=== PATIENT | male | born 1990 | race African-American/Black ===

== ENCOUNTER 2020-02-06 09:18 | Emergency (ER) | payer OTHER ==
[2020-02-06 09:35] VITALS: BP 113/54; PULSE 84; TEMP 98; BMI 19.9
--- NOTE | 2020-02-06 10:24 | PDOC ---
History of Present Illness - General Chief Complaint: Injury Stated Complaint: HAND INJURY Time Seen by Provider: 02/06/20 09:35 History Source: Patient Exam Limitations: No Limitations Past History - Travel Traveled outside of the country in the last 30 days: No Close contact w/someone who was outside of country & ill: No - Past Medical History Allergies/Adverse Reactions: Allergies Allergy/AdvReac Type Severity Reaction Status Date / Time No Known Allergies Allergy Verified 02/06/20 09:35 - Psycho Social/Smoking Cessation Hx Smoking History: Never smoked Have you smoked in the past 12 months: No Information on smoking cessation initiated: No Hx Alcohol Use: No Drug/Substance Use Hx: No Review of Systems - Review of Systems Able to Perform ROS?: Yes Comments:: 02/06/20 10:19 CONSTITUTIONAL: Absent: fever, chills, diaphoresis, generalized weakness, malaise, loss of appetite MUSCULOSKELETAL: Present: Right hand pain absent: myalgia, arthralgia, joint swelling SKIN: Absent: rash, itching, pallor NEUROLOGIC: Absent: headache, focal weakness or paresthesias, dizziness, unsteady gait, seizure, mental status changes, bladder or bowel incontinence PSYCHIATRIC: Absent: anxiety, depression, suicidal or homicidal ideation, hallucinations. Is the patient limited Lao proficient: No *Physical Exam - Vital Signs Last Vital Signs Temp Pulse Resp BP Pulse Ox 98.0 F 84 18 113/54 L 100 02/06/20 09:33 02/06/20 09:33 02/06/20 09:33 02/06/20 09:33 02/06/20 09:33 - Physical Exam 02/06/20 10:19 GENERAL: The patient is awake, alert, and fully oriented, in no acute distress. HEAD: Normal with no signs of trauma. EYES: Pupils equal, round and reactive to light, extraocular movements intact, sclera anicteric, conjunctiva clear. EXTREMITIES: Tenderness to palpation of the fourth and fifth metacarpals. Mild bruising associated with the tenderness. Patient is full range of motion of the right hand. Is able to finger oppose, make an okay sign, and make a thumbs up sign. Normal range of motion, no edema. NEUROLOGICAL: Normal speech, normal gait. PSYCH: Normal mood, normal affect. SKIN: Warm, Dry, normal turgor, no rashes or lesions noted. ED Treatment Course - RADIOLOGY Radiology Studies Ordered: Category Date Time Status HAND- RIGHT [RAD] Stat Radiology 02/06/20 09:41 Taken Medical Decision Making - Medical Decision Making 02/06/20 10:22 The patient is a 29-year-old male with no past medical history who presents to the ER today with right hand pain. He states that 2 days ago a bookshelf fell on his right hand. He states he has been able to move it however he has persistent pain with repetitive motions like cutting food while at work. He is right-hand dominant. Denies lightheadedness, dizziness, numbness and tingling to the affected extremity. A/P: Right hand pain On exam patient does have tenderness the fourth and fifth metacarpals. X-ray is negative. Patient is full range of motion of his right hand, good strength in all fingers. Likely a sprain of the flexor sheath. We will discharge home with a splint, supportive measures and orthopedic follow- up. I discussed the physical exam findings, ancillary test results and final diagnoses with the patient. I answered all of the patient's questions. The patient was satisfied with the care received and felt comfortable with the discharge plan and treatment plan. The Patient agrees to follow up with the primary care physician/specialist within 24-72 hours. Return precautions were given. Discharge - Discharge Information Problems reviewed: Yes Clinical Impression/Diagnosis: Hand pain, right Condition: Stable Disposition: HOME - Admission No - Follow up/Referral Referrals: Dane Baldwin MD [Staff Physician] - - Patient Discharge Instructions Patient Printed Discharge Instructions: DI for Hand Pain Additional Instructions: You were evaluated for your hand pain today. Your x-ray was negative and did not show any broken bones. Please wear the wrist splint for comfort and to help rest the hand. You may ice the hand for 20-minute periods. Please take Motrin 600 mg every 6 hours to help reduce swelling and to help with the pain. Please follow-up with the hand specialist within the week if your symptoms do not start to improve. A referral has been provided to you. Return to the ER for worsening pain, numbness and tingling to the extremity or if you have any changes in your symptoms. - Post Discharge Activity
== END 2020-02-06 10:31 | disposition home or self-care (01) ==
LOC: JERFT 09:18
DX: S69.81XA Other specified injuries of right wrist, hand and finger(s), initial encounter (principal); M79.641 Pain in right hand; W20.8XXA Other cause of strike by thrown, projected or falling object, initial encounter; Y92.038 Other place in apartment as the place of occurrence of the external cause; Y93.89 Activity, other specified; Y99.8 Other external cause status
CPT/HCPCS: 73130-TC-RT-FY; 99283-25

== ENCOUNTER 2020-03-03 03:45 | Emergency (ER) | payer OTHER ==
[2020-03-03] MEDS ORDERED: DIPHTH,PERTUSS(ACELL),TET 0.5 ML DISP.SYRIN IM ONE ×2 (04:25→05:08)
[2020-03-03] MEDS ORDERED: IBUPROFEN 400 MG TABLET (FP) PO ONE ×2 (04:25→05:08)
[2020-03-03 05:14] VITALS: BP 122/74; PULSE 81; TEMP 97.1; BMI 22.4
== END 2020-03-03 05:15 | disposition home or self-care (01) ==
LOC: JER 03:45
DX: S01.111A Laceration without foreign body of right eyelid and periocular area, initial encounter (principal); W19.XXXA Unspecified fall, initial encounter
CPT/HCPCS: 90715; 99283-25

== ENCOUNTER 2021-02-02 07:07 | Emergency (ER) | payer OTHER ==
[2021-02-02 07:25] VITALS: TEMP 97; BMI 21.7
[2021-02-02] MEDS ORDERED: ACETAMINOPHEN 325 MG TABLET (FP) PO ONE (08:45)
[2021-02-02] MEDS ORDERED: ACETAMINOPHEN 325 MG TABLET (FP) ONE (08:46)
[2021-02-02] MEDS ORDERED: LIDOCAINE 5% TOPICAL PATCH TP ONE (08:58)
[2021-02-02] MEDS ORDERED: LIDOCAINE 5% TOPICAL PATCH ONE (09:16)
[2021-02-02 09:36] LABS: EOS % 4.7 % (0-4.5); HEMATOCRIT 40.6 % (35.4-49); HEMOGLOBIN 13.5 GM/dL (11.7-16.9); LYMPH % 61.3 % (8-40); MCH 29.2 pg (25.7-33.7); MCHC 33.3 g/dl (32.0-35.9); MEAN CELL VOLUME 87.8 fl (80-96); MEAN PLT VOLUME 7.5 fl (7.5-11.1); MONO % 8.4 % (3.8-10.2); NEUT % 24.6 % (42.8-82.8); PLATELET COUNT 325 K/MM3 (134-434); RBC 4.62 M/mm3 (4.00-5.60); RDW 13.5 % (11.9-15.9)
[2021-02-02 09:53] LABS: POTASSIUM 4.1 mmol/L (3.5-5.1)
[2021-02-02 09:55] LABS: ALBUMIN 3.9 g/dl (3.4-5.0); CALCIUM 8.9 mg/dL (8.5-10.1)
[2021-02-02 09:56] LABS: BLOOD UREA NITROGEN 12.6 mg/dL (7-18)
[2021-02-02 09:59] LABS: CREATININE 0.9 mg/dL (0.55-1.3)
[2021-02-02 10:00] LABS: BILIRUBIN,TOTAL 0.6 mg/dL (0.2-1)
[2021-02-02 10:58] LABS: SYPHILIS W/ RPR CONF NON-REACTIVE (NONREACTIVE)
[2021-02-02 11:27] LABS: HIV INTERPRETATION NEGATIVE (NEGATIVE)
[2021-02-02 12:12] VITALS: BP 110/69; PULSE 71
[2021-02-02 12:40] LABS: ANISOCYTOSIS 0; MACROCYTOSIS 0; PLATELET ESTIMATE NORMAL
[2021-02-02] MEDS ORDERED: LIDOCAINE PATCH REMOVAL MC ONE (22:00)
== END 2021-02-02 12:10 | disposition home or self-care (01) ==
LOC: JER 07:07
DX: L02.11 Cutaneous abscess of neck (principal)
CPT/HCPCS: 36415; 70491-TC; 80053; 85025; 86780; 87389; 99283-25; Q9967

== ENCOUNTER 2021-10-28 00:44 | Emergency (ER) | payer OTHER ==
[2021-10-28 01:42] VITALS: BP 106/62; PULSE 94; TEMP 97.2; BMI 21.1
[2021-10-28 03:36] LABS: BASO % 0.5 % (0-2.0); EOS % 3.9 % (0-4.5); HEMATOCRIT 38.8 % (35.4-49); LYMPH % 51.7 % (8-40); MCHC 33.5 g/dl (32.0-35.9); MEAN CELL VOLUME 86.6 fl (80-96); MONO % 7.3 % (3.8-10.2); NEUT % 36.6 % (42.8-82.8); PLATELET COUNT 358 10^3/uL (134-434); RBC 4.48 M/mm3 (4.00-5.60); RDW 13.8 % (11.9-15.9); WHITE BLOOD COUNT 7.7 K/mm3 (4.0-10.0)
== END 2021-10-28 04:15 | disposition home or self-care (01) ==
LOC: JER 00:44
DX: R22.1 Localized swelling, mass and lump, neck (principal); L98.9 Disorder of the skin and subcutaneous tissue, unspecified
CPT/HCPCS: 36415; 85025; 99283-25